=== PATIENT | female | born 1960 | race Caucasian/White ===

== ENCOUNTER 2021-08-21 23:46 | Emergency (ER) | payer OTHER ==
[~2021-08-21 23:46] MED LIST: AUGMENTIN 875-1 EACH PO; BASAGLAR K100 UNIT/1 SC; CARDIZEM CD120 MG PO; CLARITIN10 MG PO; CLONAZEPAM 1MG T1 MG PO; DAILY VITE1 EACH PO; GLIPIZIDE ER2.5 MG PO; HYDROCODON-ACE1 EAC2 PO; IBUPROFEN800 MG PO; IMODIUM2 MG PO; LISINOPRIL-HCT1 EACH PO; METFORMIN HCL500 MG PO; NEURONTIN400 MG PO; OMEPRAZOLE40 MG PO; PERCOCET 5-3251 EACH PO; PRAVACHOL40 MG PO; SYNTHROID100 MCG PO; SYNTHROID75 MCG PO; XANAX0.5 MG PO; ZOFRAN4 MG PO
[2021-08-22 01:44] LABS: BASOPHIL 0.6 % (0-2); EOSINOPHIL 1.8 % (0-5); HGB 14.4 g/dl (12.5-16.0); LYMPHOCYTE 32.7 % (15-48); MCHC 33.5 g/dL (32.0-36.0); MCV 83.7 fL (78.0-100.0); MONOCYTE 17.5 % (0-12); MPV 10.2 fL (6.0-9.5); NEUTROPHIL 47.4 % (41-80); NRBC 0; PLT 186 K/uL (150-400); RBC 5.14 M/uL (4.20-5.40); RDW 13.2 % (11.5-14.0); WBC 3.4 K/uL (4.0-10.5)
[2021-08-22 02:09] LABS: PRO-BNP 46 pg/mL (<125)
[2021-08-22 02:13] LABS: LACTIC ACID 1.5 mmol/L (0.4-1.9)
[2021-08-22 02:48] LABS: ALBUMIN 3.6 g/dL (3.4-5.0); ALKALINE PHOSHATASE 77 U/L (46-116); ALT 144 U/L (14-59); AST 75 U/L (15-37); BILIRUBIN - TOTAL 0.3 mg/dL (0.2-1.0); BUN 13 mg/dL (7-18); BUN/CREAT RATIO (CALC) 18.8 RATIO; C-REACTIVE PROTEIN <0.20 mg/dL (<=0.90); CHLORIDE 96 mmol/L (98-107); CO2 (BICARBONATE) 30 mmol/L (21-32); CPK 139 U/L (26-192); CREATININE 0.69 mg/dL (0.51-0.95); FOLIC ACID (SERUM) 25.3 ng/mL (8.6-58.9); GLOBULIN (CALCULATION) 4.1 g/dL; GLUCOSE 356 mg/dL (74-106); TOTAL PROTEIN 7.7 g/dL (6.4-8.2)
[2021-08-22 02:51] LABS: INFLUENZA A NAA NEGATIVE (NEGATIVE)
[2021-08-22 02:54] LABS: CORONAVIRUS 2019 SARS-COV-2 POSITIVE (NEGATIVE)
[2021-08-22 03:00] LABS: BILIRUBIN NEGATIVE (NEGATIVE); BLOOD NEGATIVE Ery/uL (NEGATIVE); CLARITY CLEAR (CLEAR); COLOR YELLOW (YELLOW); GLUCOSE (U) 3+ mg/dL (NORMAL); LEUKOCYTES NEGATIVE Leu/uL (NEGATIVE); NITRITE NEGATIVE (NEGATIVE); PROTEIN NEGATIVE (NEGATIVE); SPECIFIC GRAVITY <=1.005 (1.001-1.030); UROBILINOGEN 0.2 mg/dL (0.2-1.0)
[2021-08-22 03:06] LABS: AMPHETAMINES NEGATIVE (NEGATIVE); BARBITURATES NEGATIVE (NEGATIVE); ECSTASY (MDMA) NEGATIVE (NEGATIVE); MARIJUANA (THC) NEGATIVE (NEGATIVE); METHADONE NEGATIVE (NEGATIVE); OPIATES NEGATIVE (NEGATIVE); OXYCODONE NEGATIVE (NEGATIVE)
[2021-08-22 07:17] LABS: FT4 (FREE T4) 1.4 ng/dL (0.76-1.46)
[2021-08-22] MEDS ORDERED: NORCO 5-325 TA1 EACH PO (07:29)
[2021-08-22] MEDS ORDERED: ASPIRIN EC81 MG PO (07:29)
[2021-08-22] MEDS ORDERED: CARAFATE1 GM PO (07:29)
[2021-08-22] MEDS ORDERED: FIORICET1 EACH PO (07:33)
[2021-08-22] MEDS ORDERED: ATARAX25 MG PO (07:34)
== END 2021-08-22 09:21 | disposition home or self-care (01) ==
LOC: FER 23:46
PROVIDERS: Emergency Medicine Emergency Medical Services
DX: U07.1 COVID-19 (principal); I10 Essential (primary) hypertension; E11.9 Type 2 diabetes mellitus without complications; Z23 Encounter for immunization; Z88.0 Allergy status to penicillin; Z88.1 Allergy status to other antibiotic agents; Z91.040 Latex allergy status; Z79.84 Long term (current) use of oral hypoglycemic drugs; Z79.899 Other long term (current) drug therapy
CPT/HCPCS: 36415; 70450; 71045; 80053; 80305; 81003; 82009; 82550; 82607; 82746; 83036; 83605; 83880; 84145; 84439; 84443; 84484; 85025; 85379; 86140; 87040; 93005; G0480; J1885; J2060; J2270; J2405; J7030; M0243; Q0244; Q9967; U0002